=== PATIENT | male | born 1965 | race Two or more races ===

== ENCOUNTER 2025-04-15 09:19 | Emergency (ER) | payer MEDICARE, OTHER, MEDICAID ==
[~2025-04-15] VITALS: Ht 177.8 cm; Wt 99.8 kg
[2025-04-15 10:19] LABS: BASOPHILS % (AUTO) 0.7 % (0.0-2.0); EOSINOPHILS # (AUTO) 0.1 K/uL (0.0-0.7); EOSINOPHILS % (AUTO) 1.3 % (0.0-6.0); HEMATOCRIT 41 % (39-51); HEMOGLOBIN 14.3 g/dL (13.5-17.5); LYMPHOCYTES # (AUTO) 1.5 K/uL (0.8-4.8); LYMPHOCYTES % (AUTO) 25.7 % (20.0-44.0); MEAN CORPUSCULAR HEMOGLOBIN 32 PG (26.0-33.0); MEAN CORPUSCULAR HGB CONC 35 g/dl (31.0-36.0); MEAN CORPUSCULAR VOLUME 92 fL (80-96); MONOCYTES # (AUTO) 0.4 K/uL (0.1-1.30); MONOCYTES % (AUTO) 6.7 % (2.0-12.0); NEUTROPHILS # (AUTO) 3.8 K/uL (1.8-8.9); NEUTROPHILS % (AUTO) 65.6 % (43.0-81.0); PLATELET COUNT (AUTO) 219 K/uL (150-450); RED BLOOD CELL COUNT(AUTO) 4.47 MIL/uL (4.5-6.0); RED CELL DISTRIBUTION WIDTH 12.5 % (11.5-15.0); WHITE BLOOD COUNT (AUTO) 5.7 K/uL (4.3-11.0)
[2025-04-15 10:27] LABS: CALCIUM, SERUM 8.7 mg/dL (8.5-10.1); CREATININE 1.2 mg/dL (0.6-1.3); POTASSIUM 3.9 mmol/L (3.5-5.1)
[2025-04-15] MEDS ORDERED: FAMOTIDINE/PF INJ 20 MG/2 ML VIAL IV ONE (10:27)
[2025-04-15] MEDS ORDERED: ONDANSETRON HCL/PF 4 MG/2 ML VIAL ONE (10:27)
[2025-04-15] MEDS ORDERED: DICYCLOMINE HCL INJ 20 MG/2 ML AMPUL IM ONE (10:27)
[2025-04-15] MEDS ORDERED: MAG HYDROX/AL HYDROX/SIMETH 30 ML UDC ONE (10:27)
[2025-04-15] MEDS ORDERED: LIDOCAINE VISCOUS 2% UD 15 ML UDC ONE (10:27)
[2025-04-15 10:32] LABS: ALBUMIN 3.8 g/dL (3.4-5.0); BILIRUBIN,DIRECT 0.2 mg/dL (0.0-0.2); BILIRUBIN,TOTAL 0.7 mg/dL (0.2-1.0); TOTAL PROTEIN, SERUM 7.4 g/dL (6.4-8.2)
[2025-04-15] MEDS: DICYCLOMINE HCL INJ 20 MG/2 ML AMPUL IM ONE (10:40)
[2025-04-15] MEDS: IV NS 0.9% 1,000 ML BAG IV ONE (10:40)
[2025-04-15] MEDS: FAMOTIDINE/PF INJ 20 MG/2 ML VIAL IV ONE (10:40)
[2025-04-15] MEDS: ONDANSETRON HCL/PF 4 MG/2 ML VIAL IV ONE (10:40)
[2025-04-15] MEDS: LIDOCAINE VISCOUS 2% UD 15 ML UDC MM ONE (10:40)
[2025-04-15] MEDS: MAG HYDROX/AL HYDROX/SIMETH 30 ML UDC PO ONE (10:40)
[2025-04-15] MEDS ORDERED: PANT20TA2 PO (12:16)
[2025-04-15] MEDS ORDERED: ONDA4TAB5 PO (12:16)
[2025-04-15 12:20] LABS: APPEARANCE,URINE CLEAR (CLEAR); BILIRUBIN,URINE Negative (NEGATIVE); BLOOD, URINE Negative Ery/uL (NEGATIVE); COLOR,URINE YELLOW (YELLOW); KETONES,URINE Negative (NEGATIVE); LEUKOCYTE ESTERASE ,URINE Negative (NEGATIVE); PROTEIN,URINE Negative (NEGATIVE); UGLUCOSE Negative (NEGATIVE); UROBILINOGEN,URINE 0.2 EU/dL (0.2)
[2025-04-15 12:21] LABS: NITRITE, URINE NEGATIVE (NEGATIVE)
[2025-04-15 12:40] VITALS: BP 133/70; TEMP 98.3; O2SAT 96
== END 2025-04-15 12:40 | disposition home or self-care (01) ==
LOC: ER 09:21
DX: R10.84 Generalized abdominal pain (principal); R11.0 Nausea; R19.7 Diarrhea, unspecified; I10 Essential (primary) hypertension; E78.5 Hyperlipidemia, unspecified; F31.9 Bipolar disorder, unspecified; Z79.899 Other long term (current) drug therapy
CPT/HCPCS: 99285; 74176; 96374; 96361; 96375; 85025; 80048; 83690; 80076; 81003; 36415; 96372; J1308; J2405; J7030; J0500